=== PATIENT | female | born 1970 | race Caucasian/White ===

== ENCOUNTER 2021-04-09 10:20 | Outpatient (CLI) | payer OTHER, SELFPAY ==
--- NOTE | 2021-04-09 10:58 | XR_ITS ---
WS: [id number] WRIST RIGHT TECHNIQUE: 3 views of the right wrist CLINICAL INFORMATION: WRIST JOINT PAIN, RIGHT COMPARISON: None. FINDINGS: Mild soft tissue edema about the wrist. Distal radius and ulna are normal in appearance. No visualize d fractures. Mild narrowing of the radiocarpal joint. Normal scaphoid and lunate. Normal metacarpals. No acute fractures. XR/XR wrist RT min 3V* [id number] IMPRESSION: No acute fractures
== END 2021-04-09 10:21 | disposition home or self-care (01) ==
PROVIDERS: Visit Provider Family Medicine
DX: M25.531 Pain in right wrist (principal)
CPT/HCPCS: 73110